=== PATIENT | female | born 1945 | race Caucasian/White ===

== ENCOUNTER 2018-02-19 14:50 | Outpatient (CLI) | payer MEDICARE ==
--- NOTE | 2018-02-19 16:00 | RAD ---
TWO VIEW CHEST: Indications: Cough. Comparison: 01-02-18 FINDINGS: The lungs appear clear. No infiltrate identified. Heart and mediastinum unremarkable and stable in ap pearance. IMPRESSION: No evidence of acute process or interval change. POS: [facility]
== END 2018-02-19 14:51 | disposition home or self-care (01) ==
LOC: RAD 14:50
PROVIDERS: ATTEND Internal Medicine Critical Care Medicine
DX: R06.00 Dyspnea, unspecified (principal)
CPT/HCPCS: 71046

== ENCOUNTER 2018-09-25 11:05 | Emergency (ER) | payer MEDICARE ==
[2018-09-25] MEDS ORDERED: Lidocaine 1% 20 ML MDV ONE (11:53)
--- NOTE | 2018-09-25 12:18 | RAD ---
LEFT KNEE 4 VIEW: Date: 09/25/18 COMPARISON: None. HISTORY: Pain, fall 1 month ago. FINDINGS: There is moderate medial compartment narrowing with associated osteophyte formation of the medial fem oral condyle and medial tibial plateau. There is mild lateral compartment narrowing. There is mild pa tellofemoral joint space narrowing. No significant knee joint effusion. No displaced fracture or evid ence of dislocation. IMPRESSION: Degenerative joint disease, most significantly involving the medial compartment. POS: [facility]
== END 2018-09-25 12:19 | disposition home or self-care (01) ==
LOC: SCSER 11:05
DX: M25.462 Effusion, left knee (principal); I10 Essential (primary) hypertension; J45.909 Unspecified asthma, uncomplicated; F32.9 Major depressive disorder, single episode, unspecified; Z79.899 Other long term (current) drug therapy; Z79.01 Long term (current) use of anticoagulants
CPT/HCPCS: 20610; J2001

== ENCOUNTER 2018-12-18 14:45 | Emergency (ER) | payer MEDICARE ==
[2018-12-18] MEDS ORDERED: Water For Inject, Bacteriostat 30 ML ONE (15:06)
[2018-12-18] MEDS ORDERED: diphenhydrAMINE 50 MG/ML VIAL ONE (15:06)
[2018-12-18] MEDS ORDERED: Metoclopramide HCl 10 MG/2 ML VIAL ONE (15:06)
[2018-12-18] MEDS ORDERED: methylPREDNISolone Sod Succ/PF 125 MG/2 ML VIAL ONE (15:06)
== END 2018-12-18 17:01 | disposition home or self-care (01) ==
LOC: SCSER 14:45
DX: G43.909 Migraine, unspecified, not intractable, without status migrainosus (principal); I10 Essential (primary) hypertension; J45.909 Unspecified asthma, uncomplicated; F32.9 Major depressive disorder, single episode, unspecified; Z79.899 Other long term (current) drug therapy; Z79.82 Long term (current) use of aspirin
CPT/HCPCS: 96365; 96375; J1200; J2765; J2930

== ENCOUNTER 2019-01-28 06:50 | Inpatient (IN) | payer MEDICARE ==
[2019-01-23 12:57] VITALS: BMI 28.3
[2019-01-28] MEDS ORDERED: Tranexamic Acid 1,000 MG/10 ML VIAL ONE ×2 (08:31→12:14)
[2019-01-28] MEDS ORDERED: Sodium Chloride 0.9% 100 ML ONE (08:31)
[2019-01-28] MEDS ORDERED: Scopolamine 1.5 mg/72 hour Patch ONE (08:37)
[2019-01-28] MEDS ORDERED: Fentanyl 100 MCG/2 ML VIAL ONE ×4 (08:46→12:49)
[2019-01-28] MEDS ORDERED: Midazolam HCl 2 mg/2 ml Vial ONE (08:46)
[2019-01-28] MEDS ORDERED: Lidocaine 1% (PF) 30 ML VIAL ONE (08:54)
[2019-01-28] MEDS ORDERED: Bupivacaine/Epinephrine 0.25% 30 ML VIAL ONE (09:23)
[2019-01-28] MEDS ORDERED: Clindamycin/D5W 600 mg/50 ml Premix Bag ONE (09:30)
[2019-01-28] MEDS ORDERED: Promethazine HCl 25 MG/ML VIAL IM PRN ×2 (09:32→13:05)
[2019-01-28] MEDS ORDERED: Ketorolac Tromethamine 30 MG/ML VIAL IVP PRN (09:32)
[2019-01-28] MEDS ORDERED: Zolpidem Tartrate 5 MG TAB PO PRN ×2 (09:32→13:05)
[2019-01-28] MEDS ORDERED: Ropivacaine HCl/PF 250 ML in Premix Bag 1 BAG NERVE BLCK SCH (09:32)
[2019-01-28] MEDS ORDERED: Ondansetron PF 4 MG/2 ML Vial IVP PRN ×2 (09:32→13:05)
[2019-01-28] MEDS ORDERED: HYDROcodone/Acetaminophen 10/325 mg Tablet PO PRN ×3 (09:32→13:05)
[2019-01-28] MEDS ORDERED: Fentanyl 100 MCG/2 ML VIAL SLOW IVP PRN ×3 (09:33→13:05)
[2019-01-28] MEDS ORDERED: Gentamicin Sulfate 100 MG in Premix Bag 1 BAG IVPB SCH (10:00)
[2019-01-28] MEDS ORDERED: Vancomycin HCl 1 GM in Premix Bag 1 BAG IVPB SCH ×2 (10:00→20:00)
[2019-01-28] MEDS ORDERED: Tranexamic Acid 1,000 MG in Sodium Chloride 0.9% 100 ML IVPB SCH (12:00)
--- NOTE | 2019-01-28 12:11 | RAD ---
XR Knee Lt 2 View: 01/28/2019 11:55 AM CLINICAL INDICATION: Postop left knee COMPARISON: None. FINDINGS: Bones: Intact Joints: There is a left total knee prosthesis that projects in the expected position. There are scatt ered intra-articular and periarticular soft tissue gas consistent with the patient's recent postoperative state. Soft Tissue: Above. IMPRESSION: Postoperative left knee without radiographic evidence of complication..
--- NOTE | 2019-01-28 12:34 | OP ---
DATE OF PROCEDURE: 01/28/2019 PREOPERATIVE DIAGNOSIS: Left knee osteoarthritis. POSTOPERATIVE DIAGNOSIS: Left knee osteoarthritis. PROCEDURE PERFORMED: Left total knee arthroplasty. STUDENT: Buddy Peng. ANESTHESIOLOGIST: 1. Dr. Forte. 2. Dr. Hood. ANESTHESIA: The patient received an LMA with adductor canal single shot sciatic as well as 30 mL of Marcaine intra-articularly. ESTIMATED BLOOD LOSS: Less than 100 mL. TOURNIQUET TIME: 63 minutes at 300 mmHg. ANTIBIOTICS: Vancomycin 1 g, Gent 100 mg x1 dose. The patient received TXA 1 g. IMPLANTS: A size 3 Triathlon CR femur, a size 3 X3 x 9 mm CS insert, and a size 3 tibial base plate, Triathlon base implant, asymmetric 29 poly. COMPLICATIONS: None. HISTORY OF PRESENT ILLNESS: Joel is a 73-year-old female, well known to my service. She has a history of multiple medical problems. The patient had been cleared preoperatively and cleared up her C difficile. She had left knee osteoarthritis. The patient was in severe pain, desired left total knee arthroplasty. I discussed the risks and benefits of surgery to include pain, scar, bleeding, infection, damage to vital structures, decreased range of motion and strength, nonunion, fracture above and below, need for further surgeries, loss of life or limb. The patient understood the risks and benefits and elected to proceed. DESCRIPTION OF PROCEDURE: Time-out was performed designating the patient's left lower extremity as an operative site based on site, consents, and marking. After a time-out procedure, the patient's left lower extremity was prepped and draped in a sterile fashion. Tourniquet up and left up for 63 minutes. Anterior midline incision was made with medial patellar approach, exposed the knee. We did a medial soft tissue release, took down the fat pad, everted the patella, mapped out the femur cut, 0 degrees of varus and valgus, 8, 9, 4 degrees of slope. We then placed our external rotation guide, mapped out to a size 3, placed our cutting block, cut our anterior, posterior, and chamfer cuts, removed osteophytes and block and then moved to the tibia, placing our pickle fork position, released our PCL, exposed our tibia. We cut our tibia and once 6m 4 degrees of slope, we chose a size 3 tray, which we placed after we done our medial soft tissue release. We did our medial and lateral gutter removal as well as the meniscectomies without protecting the lamina lopper. We did our osteophyte removal. We then placed a size 3 tray, pinned in position in line with anterior 1/3 of the tibial tubercle down the tibial spine, pinned into position, placed our 9-mm poly into position. We then placed the femur in position. The patient had good flexion and extension, good stability, varus and valgus to overall good control, like the final implants. We everted the patella, cut down from about a 22 down to about 13, tracked and felt the overall alignment and position of the patella. We removed the components and cut our keel, drilled holes for the lugs, then removed the components. We cemented the tibia, removed the excess and placed our poly, placed our femur, removed excess cement, placed in extension, everted, cemented our patella, removed excess cement, washed out the joint, made sure we saw no other loose bodies, controlled any bleeding. We then closed the arthrotomy with 2 / 0 / 2-0 Quill and glue. The patient will be weightbearing as tolerated. She will follow [facility] protocol. The patient will receive one more dose of vancomycin and Ancef. She will receive her GI regimen to help decrease risk of C difficile. The patient will be followed by [facility]. The patient's outlook is guarded. She had a flexion contracture, but no obvious discernible defect posteriorly that could disrupt her motion. Job ID: [id number] [facility]
[2019-01-28] MEDS ORDERED: Acetaminophen 325 MG TAB PO PRN (13:05)
[2019-01-28] MEDS ORDERED: diphenhydrAMINE 25 MG CAP PO PRN (13:05)
[2019-01-28] MEDS ORDERED: Ropivacaine 0.2% HCl/PF (40 MG/20 ML VIAL) ONE (14:16)
[2019-01-28] MEDS ORDERED: Ropivacaine 0.5% HCl/PF (150 MG/30 ML VIAL) ONE (14:16)
[2019-01-28] MEDS ORDERED: diphenhydrAMINE 50 MG/ML VIAL ONE (14:19)
[2019-01-28] MEDS ORDERED: Ondansetron PF 4 MG/2 ML Vial ONE (14:19)
[2019-01-28] MEDS ORDERED: Dexamethasone 20 MG/5 ML VIAL ONE (14:19)
[2019-01-28] MEDS ORDERED: PROPOFOL 200 MG/20 ML VIAL ONE (14:19)
[2019-01-28] MEDS ORDERED: ePHEDrine 50 MG/ML VIAL ONE (14:19)
[2019-01-28] MEDS: HYDROcodone/Acetaminophen 10/325 mg Tablet PO PRN ×2 (14:21→21:30)
[2019-01-28] MEDS: Sodium Chloride 0.9% 1,000 ML IV SCH ×2 (14:22→23:20)
[2019-01-28] MEDS ORDERED: Fioricet 325/50/40 mg Tablet PO PRN (15:27)
[2019-01-28] MEDS ORDERED: Hyoscyamine Sulfate SL 0.125 mg Tablet SL PRN (15:41)
[2019-01-28] MEDS ORDERED: Estrogens, Conjugated 30 GM TUBE VAG SCH (15:45)
--- NOTE | 2019-01-28 16:37 | HP ---
CHIEF COMPLAINT: Left knee pain. HISTORY OF PRESENT ILLNESS: Ms. Maldonado is a 73-year-old female, who presents with left knee pain and history of previous injections. The patient has difficulty with pain, recent bladder lift procedure secondary to the hospital admission. The patient is currently resting comfortably in bed. PAST MEDICAL HISTORY: Hypertension, asthma, , MARLA, hypothyroidism, reflux, hypertension, peripheral neuropathy, restless legs, irritable bowel, vitamin B12, chronic pain management, recurrent sinusitis, stomach ulceration, history of chronic kidney disease, and coronary artery disease. PAST SURGICAL HISTORY: Bilateral salpingo-oophorectomy, sinus procedures x3, bilateral carpal tunnel release, breast biopsy, right rotator cuff repair, tonsilloadenoidectomy, cataracts, surgery on both feet, implants in left and right eye, bladder lift in 1999 and revision today in 2019 for prolapsed bladder, left total hip arthroplasty, right reverse shoulder arthroplasty, cubital tunnel and trigger finger release in 2013 . MEDICATIONS: Please see admission list. ALLERGIES: HIBICLENS, ADHESIVE TAPE, AMLODIPINE, SULFA, KEFLEX, MACRODANTIN, STATIN, LYRICA, CELEBREX, TRAMADOL, NORVASC, AND PROZAC. SOCIAL HISTORY: The patient is with children. Caffeine use. No alcohol or smoking. PHYSICAL EXAMINATION: GENERAL: Alert and oriented female, in no acute distress, resting comfortably in bed. EXTREMITIES: The patient's left lower extremity shows effusion, 5 to 110 degrees, pain with flexion, extension, varus position, medial joint line tenderness. Neurovascularly intact distally. IMPRESSION: Left knee osteoarthritis with multiple medical problems. ASSESSMENT AND PLAN: The patient received her cardiac clearance and clearance from her primary treating doctors. She is at moderate risk. I discussed with the patient risks and benefits of surgery. She will receive vancomycin and clindamycin preoperatively. She has received clindamycin and Cipro. I am trying to decrease the risk of recurrence of C diff postop for recurrent infections and bladder infections. The patient will be admitted postoperatively. She will need to go to half-way for continuing care. The patient will be weightbearing as tolerated. She will receive [place]'s protocol postop. I discussed the risks and benefits of surgery, pain, scar, bleeding, infection, damage to vital structures, decreased range of motion and strength, nonunion, malunion, fracture above or below the stem, and need for further surgeries, loss of life or limb. The patient understands the risks and benefits, elected to proceed. Job ID: [id number] [facility]
[2019-01-28] MEDS: fentaNYL 50 mcg/hour Patch TD SCH (18:28)
[2019-01-28] MEDS: Ferrous Gluconate 324 MG TAB PO SCH (18:28)
--- NOTE | 2019-01-28 19:11 | PRG ---
DATE OF SERVICE: 01/28/2019 SUBJECTIVE: Ms. Maldonado is a pleasant 73-year-old female with past medical history significant for hypertension; obstructive sleep apnea, compliant with CPAP; peripheral neuropathy; chronic anemia; asthma; anxiety and depression; UTI, diagnosed on January 23, 2019, status post treatment; who presented today for elective left total knee arthroplasty with Dr. Titus. The patient is seen postoperatively up on the floor. Hospitalist Service has been consulted for medical management of this patient. The patient has absolutely no complaints at this time. She is resting comfortably. She has no postoperative pain. She has had no nausea or vomiting. She has tolerated both lunch and dinner. She has already been up out of bed since her procedure. She is concerned that her home medications do get restarted, otherwise she has no concerns or complaints at this time. OBJECTIVE: VITAL SIGNS: Blood pressure 148/67, pulse is 66, respirations 16, and O2 saturation is 98%. GENERAL: The patient is a female, resting comfortably in bed, in no acute distress. HEENT: Head, atraumatic and normocephalic. Mucous membranes are moist. NECK: Supple. No lymphadenopathy. Trachea is midline. No JVD. CV: S1 and S2, regular rate and rhythm. No appreciable murmurs, rubs, or gallops. LUNGS: Regular respiratory rate and pattern. Clear to auscultation bilaterally. I can appreciate no wheezes or crackles. ABDOMEN: Soft, positive bowel sounds. Nontender. No masses. SKIN: Warm and dry. NEUROLOGIC: Cranial nerves 2 through 12 are grossly intact. The patient is nonfocal. EXTREMITIES: Her left knee is currently wrapped and dressed. She has no lower extremity pitting edema bilaterally. LABORATORY DATA: From Jan 23 2019; white blood cell count 9.2, hemoglobin 9.9, hematocrit 30.3, platelet count 303. PT 14.4, INR 1.1. Sodium 142, potassium 3.7, chloride 113, carbon dioxide 22, anion gap 11, BUN 33, GFR 52, creatinine 1.08. ASSESSMENT: 1. Status post left total knee arthroplasty with Dr. Titus today. 2. Hypertension. 3. Obstructive sleep apnea, on CPAP. 4. Peripheral neuropathy. 5. Chronic anemia. 6. Asthma. 7. Anxiety and depression. 8. Urinary tract infection, diagnosed on January 23, 2019, status post antibiotic treatment. 9. hypothyroidism PLAN: We will continue the patient's home medications, including her antihypertensive regimen along with her iron and vitamin C. We will continue her probiotic. Continue her gabapentin. The patient's postoperative pain is well controlled at this time. We will continue to follow Dr. Titus's postoperative recommendations, and we will continue to follow this patient through her recovery. The care of this patient has been discussed with Dr. Vanegas, who agrees with the above. Job ID: [id number] [facility]
[2019-01-28] MEDS: Mometasone/Formoterol 120 PUFF INHALER INH SCH (19:14)
[2019-01-28] MEDS: rOPINIRole HCl 0.5 MG TAB PO SCH (20:17)
[2019-01-28] MEDS: Magnesium Oxide 400 MG TAB PO SCH (20:18)
[2019-01-28] MEDS: Pramipexole Di-HCl 1 MG TAB PO SCH (20:18)
[2019-01-28] MEDS: Gabapentin 300 MG CAP PO SCH (20:18)
[2019-01-28] MEDS: Topiramate 100 MG TAB PO SCH (20:18)
[2019-01-28] MEDS: Aspirin 81 mg Enteric Coated Tablet PO SCH (20:18)
[2019-01-28] MEDS: Senokot S 8.6-50 MG TAB PO SCH (20:19)
[2019-01-28] MEDS: buPROPion 75 MG TAB PO SCH (20:19)
[2019-01-28] MEDS ORDERED: FLUTICASONE EA NARE SCH (21:00)
[2019-01-28] MEDS ORDERED: Ferrous Gluconate 324 MG TAB PO SCH (21:00)
[2019-01-28] MEDS ORDERED: buPROPion 75 MG TAB PO SCH (21:00)
[2019-01-28] MEDS ORDERED: Gabapentin 300 MG CAP PO SCH (21:00)
[2019-01-28] MEDS ORDERED: AZELASTINE EA NARE SCH (21:00)
[2019-01-28] MEDS ORDERED: Docusate 100 MG CAP PO SCH (21:00)
[2019-01-29] MEDS: Ketorolac Tromethamine 30 MG/ML VIAL IVP PRN (00:43)
[2019-01-29] MEDS: tiZANidine HCl 4 MG TAB PO PRN (00:44)
[2019-01-29 05:18] LABS: Hemoglobin 8.5 g/dL (12.0-16.0); Mean Corpuscular HGB CONC 32.1 g/dL (32.0-36.0); Mean Corpuscular Hemoglobin 33.8 pg (27.0-31.0); Mean Platelet Volume 7.5 fL (7.4-10.4); Platelet Count 208 thou/uL (130-400); RBC Distribution Width 13.4 % (11.5-14.5); White Blood Cell (WBC) Count 9.3 thou/uL (4.8-10.8)
[2019-01-29] MEDS: Levothyroxine Sodium 75 MCG TAB PO SCH (05:24)
[2019-01-29 07:23] LABS: Anion Gap 12 mmol/L (10-20); BUN (Urea Nitrogen) 30 mg/dL (9.8-20.1); Calc. Creatinine Clearance 38 mL/min (70-130); Calcium 8.2 mg/dL (7.8-10.44); Carbon Dioxide 21 mmol/L (23-31); Chloride 109 mmol/L (98-107); Estimated GFR-MDRD 35; Glucose 200 mg/dL (83-110); Sodium 138 mmol/L (136-145)
[2019-01-29] MEDS: Mometasone/Formoterol 120 PUFF INHALER INH SCH ×2 (07:35→18:18)
[2019-01-29] MEDS: buPROPion 75 MG TAB PO SCH ×3 (08:24→21:04)
[2019-01-29] MEDS: Propranolol HCl LA 80 MG CAP PO SCH (08:24)
[2019-01-29] MEDS: Lactinex Tablet PO SCH (08:24)
[2019-01-29] MEDS: Thyroid 30 MG TAB PO SCH (08:24)
[2019-01-29] MEDS: Zinc Sulfate 220 MG CAP PO SCH (08:24)
[2019-01-29] MEDS: rOPINIRole HCl 0.5 MG TAB PO SCH ×2 (08:25→21:04)
[2019-01-29] MEDS: Ascorbic Acid 500 mg Chewable Tablet PO SCH (08:26)
[2019-01-29] MEDS: Pramipexole Di-HCl 1 MG TAB PO SCH ×2 (08:26→21:05)
[2019-01-29] MEDS: Escitalopram Oxalate 20 mg Tablet PO SCH (08:26)
[2019-01-29] MEDS: Ferrous Gluconate 324 MG TAB PO SCH ×2 (08:26→16:29)
[2019-01-29] MEDS: Gabapentin 300 MG CAP PO SCH ×2 (08:26→21:06)
[2019-01-29] MEDS: Senokot S 8.6-50 MG TAB PO SCH ×2 (08:26→21:05)
[2019-01-29] MEDS: Aspirin 81 mg Enteric Coated Tablet PO SCH ×2 (08:26→21:06)
[2019-01-29] MEDS: Allopurinol 300 MG TAB PO SCH (08:26)
[2019-01-29] MEDS: Multivitamin W/ Minerals 1 TAB PO SCH (08:26)
[2019-01-29] MEDS: Loratadine 10 MG TAB PO SCH (08:27)
[2019-01-29] MEDS: Losartan 25 MG TAB PO SCH (08:33)
[2019-01-29] MEDS: HYDROcodone/Acetaminophen 10/325 mg Tablet PO PRN ×3 (08:36→16:29)
[2019-01-29] MEDS ORDERED: Multivit, Therapeutic 1 TAB PO SCH (09:00)
[2019-01-29] MEDS ORDERED: METHYLCELLULOSE PO SCH (09:00)
[2019-01-29] MEDS ORDERED: [UNRECOGNIZED DRUG - OTHER] PO SCH (09:00)
[2019-01-29] MEDS ORDERED: THYROID PO SCH (09:00)
[2019-01-29] MEDS: Sodium Chloride 0.9% 1,000 ML IV SCH ×2 (09:33→21:04)
--- NOTE | 2019-01-29 11:47 | PDOC.PN ---
- Subjective Encounter Start Date: 01/29/19 Encounter Start Time: 08:20 -: old records requested/rev Patient seen and examined. No new complaints. No overnight events - Objective MAR Reviewed: Yes Vital Signs & Weight: Vital Signs (12 hours) Temp Pulse Resp BP BP Pulse Ox 01/29/19 08:28 98.8 F 59 L 18 119/68 99 01/29/19 07:35 66 20 96 01/29/19 03:57 98.4 F 51 L 16 101/61 95 01/29/19 00:25 97.9 F 66 16 150/58 H 94 L Weight Admit Weight 160 lb Weight 160 lb I&O: 01/28/19 01/29/19 01/30/19 06:59 06:59 06:59 Intake Total 2120 Output Total 1975 Balance 145 Result Diagrams: 01/29/19 04:55 01/29/19 06:54 Phys Exam - Physical Examination Constitutional: NAD HEENT: PERRLA, moist MMs, sclera anicteric Neck: no JVD, supple Respiratory: no wheezing, no rales, no rhonchi Cardiovascular: RRR, no significant murmur, no rub Gastrointestinal: soft, non-tender, no distention, positive bowel sounds Musculoskeletal: no edema, pulses present left knee with dressing Neurological: non-focal, normal sensation Lymphatic: no nodes Psychiatric: normal affect, A&O x 3 Skin: no rash, normal turgor Dx/Plan (1) Status post total left knee replacement Code(s): Z96.652 - PRESENCE OF LEFT ARTIFICIAL KNEE JOINT Status: Acute (2) Anxiety Code(s): F41.9 - ANXIETY DISORDER, UNSPECIFIED Status: Chronic Comment: Controlled (3) Asthma Code(s): J45.909 - UNSPECIFIED ASTHMA, UNCOMPLICATED Status: Chronic Comment : Stable/asymptomatic currently. (4) B12 deficiency Code(s): E53.8 - DEFICIENCY OF OTHER SPECIFIED B GROUP VITAMINS Status: Chronic (5) CKD (chronic kidney disease) stage 3, GFR 30-59 ml/min Status: Chronic (6) Dyslipidemia Code(s): E78.5 - HYPERLIPIDEMIA, UNSPECIFIED Status: Chronic (7) GERD (gastroesophageal reflux disease) Code(s): K21.9 - GASTRO-ESOPHAGEAL REFLUX DISEASE WITHOUT ESOPHAGITIS Status: Chronic (8) Gout Code(s): M10.9 - GOUT, UNSPECIFIED Status: Chronic (9) HTN (hypertension) Code(s): I10 - ESSENTIAL (PRIMARY) HYPERTENSION Status: Chronic (10) History of total left hip arthroplasty Code(s): Z96.642 - PRESENCE OF LEFT ARTIFICIAL HIP JOINT Status: Chronic Comment: POD #2, doing well overall. Plans to proceed with outpt rehab and anticipates transition on 03/10 (11) MARLA on CPAP Code(s): G47.33 - OBSTRUCTIVE SLEEP APNEA (ADULT) (PEDIATRIC) Status: Chronic Comment: CPAP qhs (12) Osteoarthritis Code(s): M19.90 - UNSPECIFIED OSTEOARTHRITIS, UNSPECIFIED SITE Status: Chronic (13) RLS (restless legs syndrome) Status: Chronic (14) Shoulder joint replacement status Code(s): Z96.619 - PRESENCE OF UNSPECIFIED ARTIFICIAL SHOULDER JOINT Status: Chronic - Plan cont current plan of care, PT/OT * medication reviewed as below * symptomatic treatment * code status- full code * home meds * continue aspirin for dvt prophylaxis. Review of Systems - Review of Systems ENT: negative: Ear Pain, Ear Discharge, Nose Pain, Nose Discharge, Nose Congestion, Mouth Pain, Mouth Swelling, Throat Pain, Throat Swelling, Other Respiratory: negative: Cough, Dry, Shortness of Breath, Hemoptysis, SOB with Excertion, Pleuritic Pain, Sputum, Wheezing Cardiovascular: negative: chest pain, palpitations, orthopnea, paroxysmal nocturnal dyspnea, edema, light headedness, other Gastrointestinal: negative: Nausea, Vomiting, Abdominal Pain, Diarrhea, Constipation, Melena, Hematochezia, Other Genitourinary: negative: Dysuria, Frequency, Incontinence, Hematuria, Retention , Other Musculoskeletal: negative: Neck Pain, Shoulder Pain, Arm Pain, Back Pain, Hand Pain, Leg Pain, Foot Pain, Other - Medications/Allergies Allergies/Adverse Reactions: Allergies Allergy/AdvReac Type Severity Reaction Status Date / Time adhesive Allergy Severe Verified 01/23/19 12:58 amlodipine besylate Allergy Severe Rash Verified 01/23/19 12:58 [From Norvasc] celecoxib [From Celebrex] Allergy Severe Rash Verified 01/23/19 12:58 cephalexin monohydrate Allergy Severe Hives Verified 01/23/19 12:58 [From Keflex] peanut Allergy Severe Rash Verified 01/23/19 12:58 soy Allergy Severe Swollen Verified 01/23/19 12:58 Lips Sulfa (Sulfonamide Allergy Severe Severe Verified 01/23/19 12:58 Antibiotics) Hives tramadol Allergy Severe Severe Verified 01/23/19 12:58 Hives chlorhexidine Allergy Intermediate itching Verified 01/23/19 12:58 [From Hibiclens] nitrofurantoin AdvReac Severe Verified 01/23/19 12:58 macrocrystalline [From Macrodantin] pregabalin [From Lyrica] AdvReac Severe Verified 01/23/19 12:59 Ygkkenq-Tia-Hie Reductase AdvReac Severe Verified 01/23/19 12:59 Inhibitor bandaids Allergy Severe Rash Uncoded 01/23/19 12:59 Medications: Current Medications Acetaminophen (Tylenol) 650 mg PO Q4H PRN PRN Reason: Headache/Fever or Pain Acetaminophen/Butalbital/Caffeine (Fioricet) 1 tab PO Q6H PRN PRN Reason: Headache Stop: 02/02/19 15:28 Hydrocodone Bitart/Acetaminophen ([place] 10/325) 1 tab PO Q4H PRN PRN Reason: Pain (1-3) Hydrocodone Bitart/Acetaminophen ([place] 10/325) 2 tab PO Q4H PRN PRN Reason: PAIN (4-6) Last Admin: 01/29/19 08:36 Dose: 2 tab Acidophilus (Floranex) 1 tab PO DAILY [facility] Last Admin: 01/29/19 08:24 Dose: 1 tab Allopurinol (Zyloprim) 150 mg PO DAILY [facility] Last Admin: 01/29/19 08:26 Dose: 150 mg Ascorbic Acid (Vitamin C) 500 mg PO DAILY [facility] Last Admin: 01/29/19 08:26 Dose: 500 mg Aspirin (Ecotrin) 81 mg PO BID [facility] Last Admin: 01/29/19 08:26 Dose: 81 mg Bupropion HCl (Wellbutrin) 75 mg PO TID [facility] Last Admin: 01/29/19 08:24 Dose: 75 mg Cholecalciferol (Vitamin D3) 5,000 units PO DAILY [facility] Last Admin: 01/29/19 08:25 Dose: 5,000 units Cyanocobalamin (Vitamin B-12) 5,000 mcg PO Q2DAYS@0900 [facility] Diphenhydramine HCl (Benadryl) 25 mg PO Q6H PRN PRN Reason: Itching Last Admin: 01/28/19 18:28 Dose: 25 mg Escitalopram Oxalate (Lexapro) 20 mg PO DAILY [facility] Last Admin: 01/29/19 08:26 Dose: 20 mg Estrogens Conjugated (Premarin Cream) 1 gm VAG MoWeFr [facility] Fentanyl (Sublimaze) 50 mcg SLOW IVP Q1H PRN PRN Reason: breakthrough pain Fentanyl (Duragesic) 50 mcg TD Q2D [facility] Last Admin: 01/28/19 18:28 Dose: 50 mcg Ferrous Gluconate (Fergon) 324 mg PO BID-WM [facility] Last Admin: 01/29/19 08:26 Dose: 324 mg Gabapentin (Neurontin) 300 mg PO QAM [facility] Last Admin: 01/29/19 08:26 Dose: 300 mg Gabapentin (Neurontin) 600 mg PO HS [facility] Last Admin: 01/28/19 20:18 Dose: 600 mg Hyoscyamine Sulfate (Levsin Sl) 0.125 mg SL Q4H PRN PRN Reason: GI Upset Ropivacaine 250 ml/ Device 250 mls @ 10 mls/hr NERVE BLCK INF [facility] Sodium Chloride (Normal Saline 0.9%) 1,000 mls @ 100 mls/hr IV .Q10H [facility] Last Admin: 01/29/19 09:33 Dose: 1,000 mls Iron/Minerals/Multivitamins (Theragran M) 1 tab PO DAILY [facility] Last Admin: 01/29/19 08:26 Dose: 1 tab Ketorolac Tromethamine (Toradol) 15 mg IVP Q8H PRN PRN Reason: Pain Stop: 02/02/19 13:06 Last Admin: 01/29/19 00:43 Dose: 15 mg Levothyroxine Sodium (Synthroid) 75 mcg PO 0600 [facility] Last Admin: 01/29/19 05:24 Dose: 75 mcg Loratadine (Claritin) 10 mg PO DAILY [facility] Last Admin: 01/29/19 08:27 Dose: 10 mg Losartan Potassium (Cozaar) 50 mg PO DAILY [facility] Last Admin: 01/29/19 08:33 Dose: 50 mg Magnesium Oxide (Magnesium Oxide) 400 mg PO HS [facility] Last Admin: 01/28/19 20:18 Dose: 400 mg Mirabegron (Myrbetriq Er) 25 mg PO DAILY [facility] Last Admin: 01/29/19 08:24 Dose: 25 mg Mometasone Furoate/Formoterol Fumar (Dulera 200 Mcg/5 Mcg Inhaler) 2 puff INH BID-RT [facility] Last Admin: 01/29/19 07:35 Dose: 2 puff Ondansetron HCl (Zofran) 4 mg IVP Q6H PRN PRN Reason: Nausea/Vomiting Pantoprazole Sodium (Protonix) 40 mg PO DAILY [facility] Last Admin: 01/29/19 08:26 Dose: 40 mg Pramipexole Dihydrochloride (Mirapex) 1 mg PO BID [facility] Last Admin: 01/29/19 08:26 Dose: 1 mg Promethazine HCl (Phenergan) 12.5 mg IM Q4H PRN PRN Reason: Nausea Propranolol HCl (Inderal La) 160 mg PO DAILY [facility] Last Admin: 01/29/19 08:24 Dose: 160 mg Ropinirole HCl (Requip) 0.5 mg PO BID [facility] Last Admin: 01/29/19 08:25 Dose: 0.5 mg Senna/Docusate Sodium (Senokot S) 2 tab PO BID [facility] Last Admin: 01/29/19 08:26 Dose: 2 tab Sodium Chloride (Flush - Normal Saline) 10 ml IVF PRN PRN PRN Reason: Saline Flush Thyroid (Jackson Thyroid) 30 mg PO QAM [facility] Last Admin: 01/29/19 08:24 Dose: 30 mg Tizanidine HCl (Zanaflex) 4 mg PO HS PRN PRN Reason: Muscle Spasm Last Admin: 01/29/19 00:44 Dose: 4 mg Topiramate (Topamax) 150 mg PO HS [facility] Last Admin: 01/28/19 20:18 Dose: 150 mg Zinc Sulfate (Zinc Sulfate) 50 mg PO DAILY [facility] Last Admin: 01/29/19 08:24 Dose: 50 mg Zolpidem Tartrate (Ambien) 5 mg PO HSPRN PRN PRN Reason: Insomnia
[2019-01-29] MEDS ORDERED: Estrogens, Conjugated 30 GM TUBE VAG SCH (21:00)
[2019-01-29] MEDS: Magnesium Oxide 400 MG TAB PO SCH (21:05)
[2019-01-29] MEDS: Topiramate 100 MG TAB PO SCH (21:06)
[2019-01-30] MEDS: tiZANidine HCl 4 MG TAB PO PRN (00:10)
[2019-01-30] MEDS: Ketorolac Tromethamine 30 MG/ML VIAL IVP PRN (00:10)
[2019-01-30] MEDS: Sodium Chloride 0.9% 1,000 ML IV SCH (04:29)
[2019-01-30 05:38] LABS: Hemoglobin 7.9 g/dL (12.0-16.0); Mean Corpuscular Hemoglobin 33.6 pg (27.0-31.0); Mean Platelet Volume 7.8 fL (7.4-10.4); Platelet Count 209 thou/uL (130-400); RBC Distribution Width 13.2 % (11.5-14.5); Red Blood Cell (RBC) Count 2.36 mill/uL (4.20-5.40); White Blood Cell (WBC) Count 8.2 thou/uL (4.8-10.8)
[2019-01-30] MEDS: Levothyroxine Sodium 75 MCG TAB PO SCH (05:52)
[2019-01-30] MEDS: HYDROcodone/Acetaminophen 10/325 mg Tablet PO PRN ×2 (05:52→12:29)
[2019-01-30] MEDS: Mometasone/Formoterol 120 PUFF INHALER INH SCH (07:03)
[2019-01-30 08:32] VITALS: TEMP 97.8
[2019-01-30] MEDS: rOPINIRole HCl 0.5 MG TAB PO SCH (08:36)
[2019-01-30] MEDS: Propranolol HCl LA 80 MG CAP PO SCH (08:36)
[2019-01-30] MEDS: Thyroid 30 MG TAB PO SCH (08:38)
[2019-01-30] MEDS: Zinc Sulfate 220 MG CAP PO SCH (08:38)
[2019-01-30] MEDS: Lactinex Tablet PO SCH (08:38)
[2019-01-30] MEDS: Ascorbic Acid 500 mg Chewable Tablet PO SCH (08:39)
[2019-01-30] MEDS: Ferrous Gluconate 324 MG TAB PO SCH (08:39)
[2019-01-30] MEDS: Losartan 25 MG TAB PO SCH (08:39)
[2019-01-30] MEDS: Pramipexole Di-HCl 1 MG TAB PO SCH (08:39)
[2019-01-30] MEDS: Senokot S 8.6-50 MG TAB PO SCH (08:39)
[2019-01-30] MEDS: Loratadine 10 MG TAB PO SCH (08:40)
[2019-01-30] MEDS: Multivitamin W/ Minerals 1 TAB PO SCH (08:40)
[2019-01-30] MEDS: Aspirin 81 mg Enteric Coated Tablet PO SCH (08:40)
[2019-01-30] MEDS: buPROPion 75 MG TAB PO SCH (08:40)
[2019-01-30] MEDS: Allopurinol 300 MG TAB PO SCH (08:40)
[2019-01-30] MEDS: Escitalopram Oxalate 20 mg Tablet PO SCH (08:40)
[2019-01-30] MEDS: Gabapentin 300 MG CAP PO SCH (08:40)
[2019-01-30] MEDS ORDERED: Cyanocobalamin (Vitamin B-12) 1,000 MCG TAB PO SCH (09:00)
[2019-01-30] MEDS ORDERED: Folic Acid 1 MG TAB PO SCH (09:00)
[2019-01-30 09:01] LABS: Anion Gap 10 mmol/L (10-20); BUN (Urea Nitrogen) 34 mg/dL (9.8-20.1); Calc. Creatinine Clearance 39 mL/min (70-130); Carbon Dioxide 21 mmol/L (23-31); Chloride 110 mmol/L (98-107); Estimated GFR-MDRD 35; Glucose 272 mg/dL (83-110); Potassium 3.9 mmol/L (3.5-5.1); Sodium 137 mmol/L (136-145)
[2019-01-30 09:56] LABS: Hemoglobin A1c 5.6 % (4.0-6.0)
--- NOTE | 2019-01-30 10:11 | PDOC.PN ---
- Subjective Encounter Start Date: 01/30/19 Encounter Start Time: 08:30 Patient seen and examined. No new complaints. No overnight events - Objective MAR Reviewed: Yes Vital Signs & Weight: Vital Signs (12 hours) Temp Pulse Resp BP Pulse Ox 01/30/19 08:43 62 122/65 01/30/19 07:26 97.8 F 50 L 16 90/38 L 97 01/30/19 07:03 61 18 96 01/30/19 04:05 98.9 F 58 L 18 144/66 H 96 01/30/19 00:28 98.2 F 65 20 165/69 H 96 Weight Admit Weight 160 lb Weight 160 lb I&O: 01/29/19 01/30/19 01/31/19 06:59 06:59 06:59 Intake Total 2120 3520 Output Total 1975 Balance 145 3520 Result Diagrams: 01/30/19 05:24 01/30/19 08:26 Phys Exam - Physical Examination Constitutional: NAD HEENT: PERRLA, moist MMs, sclera anicteric Neck: no JVD, supple Respiratory: no wheezing, no rales, no rhonchi Cardiovascular: RRR, no significant murmur, no rub Gastrointestinal: soft, non-tender, no distention, positive bowel sounds Musculoskeletal: no edema, pulses present Neurological: non-focal, normal sensation Lymphatic: no nodes Psychiatric: normal affect, A&O x 3 Skin: no rash, normal turgor Dx/Plan (1) Status post total left knee replacement Code(s): Z96.652 - PRESENCE OF LEFT ARTIFICIAL KNEE JOINT Status: Acute (2) Anxiety Code(s): F41.9 - ANXIETY DISORDER, UNSPECIFIED Status: Chronic Comment: Controlled (3) Asthma Code(s): J45.909 - UNSPECIFIED ASTHMA, UNCOMPLICATED Status: Chronic Comment : Stable/asymptomatic currently. (4) B12 deficiency Code(s): E53.8 - DEFICIENCY OF OTHER SPECIFIED B GROUP VITAMINS Status: Chronic (5) CKD (chronic kidney disease) stage 3, GFR 30-59 ml/min Status: Chronic (6) Dyslipidemia Code(s): E78.5 - HYPERLIPIDEMIA, UNSPECIFIED Status: Chronic (7) GERD (gastroesophageal reflux disease) Code(s): K21.9 - GASTRO-ESOPHAGEAL REFLUX DISEASE WITHOUT ESOPHAGITIS Status: Chronic (8) Gout Code(s): M10.9 - GOUT, UNSPECIFIED Status: Chronic (9) HTN (hypertension) Code(s): I10 - ESSENTIAL (PRIMARY) HYPERTENSION Status: Chronic (10) History of total left hip arthroplasty Code(s): Z96.642 - PRESENCE OF LEFT ARTIFICIAL HIP JOINT Status: Chronic Comment: POD #2, doing well overall. Plans to proceed with outpt rehab and anticipates transition on 03/10 (11) MARLA on CPAP Code(s): G47.33 - OBSTRUCTIVE SLEEP APNEA (ADULT) (PEDIATRIC) Status: Chronic Comment: CPAP qhs (12) Osteoarthritis Code(s): M19.90 - UNSPECIFIED OSTEOARTHRITIS, UNSPECIFIED SITE Status: Chronic (13) RLS (restless legs syndrome) Status: Chronic (14) Shoulder joint replacement status Code(s): Z96.619 - PRESENCE OF UNSPECIFIED ARTIFICIAL SHOULDER JOINT Status: Chronic - Plan cont current plan of care * medication reviewed as below * symptomatic treatment * will need rehab placement * pain controlled * nerve block as per anesthesia. Review of Systems - Review of Systems ENT: negative: Ear Pain, Ear Discharge, Nose Pain, Nose Discharge, Nose Congestion, Mouth Pain, Mouth Swelling, Throat Pain, Throat Swelling, Other Respiratory: negative: Cough, Dry, Shortness of Breath, Hemoptysis, SOB with Excertion, Pleuritic Pain, Sputum, Wheezing Cardiovascular: negative: chest pain, palpitations, orthopnea, paroxysmal nocturnal dyspnea, edema, light headedness, other Gastrointestinal: negative: Nausea, Vomiting, Abdominal Pain, Diarrhea, Constipation, Melena, Hematochezia, Other Genitourinary: negative: Dysuria, Frequency, Incontinence, Hematuria, Retention , Other Musculoskeletal: negative: Neck Pain, Shoulder Pain, Arm Pain, Back Pain, Hand Pain, Leg Pain, Foot Pain, Other - Medications/Allergies Allergies/Adverse Reactions: Allergies Allergy/AdvReac Type Severity Reaction Status Date / Time adhesive Allergy Severe Verified 01/23/19 12:58 amlodipine besylate Allergy Severe Rash Verified 01/23/19 12:58 [From Norvasc] celecoxib [From Celebrex] Allergy Severe Rash Verified 01/23/19 12:58 cephalexin monohydrate Allergy Severe Hives Verified 01/23/19 12:58 [From Keflex] peanut Allergy Severe Rash Verified 01/23/19 12:58 soy Allergy Severe Swollen Verified 01/23/19 12:58 Lips Sulfa (Sulfonamide Allergy Severe Severe Verified 01/23/19 12:58 Antibiotics) Hives tramadol Allergy Severe Severe Verified 01/23/19 12:58 Hives chlorhexidine Allergy Intermediate itching Verified 01/23/19 12:58 [From Hibiclens] nitrofurantoin AdvReac Severe Verified 01/23/19 12:58 macrocrystalline [From Macrodantin] pregabalin [From Lyrica] AdvReac Severe Verified 01/23/19 12:59 Prmbypg-Lwr-Bpg Reductase AdvReac Severe Verified 01/23/19 12:59 Inhibitor bandaids Allergy Severe Rash Uncoded 01/23/19 12:59 Medications: Current Medications Acetaminophen (Tylenol) 650 mg PO Q4H PRN PRN Reason: Headache/Fever or Pain Acetaminophen/Butalbital/Caffeine (Fioricet) 1 tab PO Q6H PRN PRN Reason: Headache Stop: 02/02/19 15:28 Hydrocodone Bitart/Acetaminophen (Ione 10/325) 1 tab PO Q4H PRN PRN Reason: Pain (1-3) Hydrocodone Bitart/Acetaminophen (Ione 10/325) 2 tab PO Q4H PRN PRN Reason: PAIN (4-6) Last Admin: 01/30/19 05:52 Dose: 2 tab Acidophilus (Floranex) 1 tab PO DAILY [facility] Last Admin: 01/30/19 08:38 Dose: 1 tab Allopurinol (Zyloprim) 150 mg PO DAILY [facility] Last Admin: 01/30/19 08:40 Dose: 150 mg Ascorbic Acid (Vitamin C) 500 mg PO DAILY [facility] Last Admin: 01/30/19 08:39 Dose: 500 mg Aspirin (Ecotrin) 81 mg PO BID [facility] Last Admin: 01/30/19 08:40 Dose: 81 mg Bupropion HCl (Wellbutrin) 75 mg PO TID [facility] Last Admin: 01/30/19 08:40 Dose: 75 mg Cholecalciferol (Vitamin D3) 5,000 units PO DAILY [facility] Last Admin: 01/30/19 08:38 Dose: 5,000 units Cyanocobalamin (Vitamin B-12) 5,000 mcg PO Q2DAYS@0900 [facility] Last Admin: 01/30/19 08:39 Dose: 5,000 mcg Diphenhydramine HCl (Benadryl) 25 mg PO Q6H PRN PRN Reason: Itching Last Admin: 01/28/19 18:28 Dose: 25 mg Escitalopram Oxalate (Lexapro) 20 mg PO DAILY [facility] Last Admin: 01/30/19 08:40 Dose: 20 mg Estrogens Conjugated (Premarin Cream) 1 gm VAG MoWeFr [facility] Last Admin: 01/29/19 21:07 Dose: 1 gm Fentanyl (Sublimaze) 50 mcg SLOW IVP Q1H PRN PRN Reason: breakthrough pain Fentanyl (Duragesic) 50 mcg TD Q2D [facility] Last Admin: 01/28/19 18:28 Dose: 50 mcg Ferrous Gluconate (Fergon) 324 mg PO BID-WM [facility] Last Admin: 01/30/19 08:39 Dose: 324 mg Folic Acid (Folvite) 1 mg PO DAILY [facility] Last Admin: 01/30/19 08:40 Dose: 1 mg Gabapentin (Neurontin) 300 mg PO QAM [facility] Last Admin: 01/30/19 08:40 Dose: 300 mg Gabapentin (Neurontin) 600 mg PO HS [facility] Last Admin: 01/29/19 21:06 Dose: 600 mg Hyoscyamine Sulfate (Levsin Sl) 0.125 mg SL Q4H PRN PRN Reason: GI Upset Ropivacaine 250 ml/ Device 250 mls @ 10 mls/hr NERVE BLCK INF [facility] Last Admin: 01/29/19 14:07 Dose: 250 mls Sodium Chloride (Normal Saline 0.9%) 1,000 mls @ 100 mls/hr IV .Q10H [facility] Last Admin: 01/30/19 04:29 Dose: Not Given Iron/Minerals/Multivitamins (Theragran M) 1 tab PO DAILY [facility] Last Admin: 01/30/19 08:40 Dose: 1 tab Ketorolac Tromethamine (Toradol) 15 mg IVP Q8H PRN PRN Reason: Pain Stop: 02/02/19 13:06 Last Admin: 01/30/19 00:10 Dose: 15 mg Levothyroxine Sodium (Synthroid) 75 mcg PO 0600 [facility] Last Admin: 01/30/19 05:52 Dose: 75 mcg Loratadine (Claritin) 10 mg PO DAILY [facility] Last Admin: 01/30/19 08:40 Dose: 10 mg Losartan Potassium (Cozaar) 50 mg PO DAILY [facility] Last Admin: 01/30/19 08:39 Dose: 50 mg Magnesium Oxide (Magnesium Oxide) 400 mg PO HS [facility] Last Admin: 01/29/19 21:05 Dose: 400 mg Mirabegron (Myrbetriq Er) 25 mg PO DAILY [facility] Last Admin: 01/30/19 08:38 Dose: 25 mg Mometasone Furoate/Formoterol Fumar (Dulera 200 Mcg/5 Mcg Inhaler) 2 puff INH BID-RT [facility] Last Admin: 01/30/19 07:03 Dose: 2 puff Ondansetron HCl (Zofran) 4 mg IVP Q6H PRN PRN Reason: Nausea/Vomiting Pantoprazole Sodium (Protonix) 40 mg PO DAILY [facility] Last Admin: 01/30/19 08:40 Dose: 40 mg Pramipexole Dihydrochloride (Mirapex) 1 mg PO BID [facility] Last Admin: 01/30/19 08:39 Dose: 1 mg Promethazine HCl (Phenergan) 12.5 mg IM Q4H PRN PRN Reason: Nausea Propranolol HCl (Inderal La) 160 mg PO DAILY [facility] Last Admin: 01/30/19 08:36 Dose: 160 mg Ropinirole HCl (Requip) 0.5 mg PO BID [facility] Last Admin: 01/30/19 08:36 Dose: 0.5 mg Senna/Docusate Sodium (Senokot S) 2 tab PO BID [facility] Last Admin: 01/30/19 08:39 Dose: 2 tab Sodium Chloride (Flush - Normal Saline) 10 ml IVF PRN PRN PRN Reason: Saline Flush Thyroid ([place] Thyroid) 30 mg PO QAM [facility] Last Admin: 01/30/19 08:38 Dose: 30 mg Tizanidine HCl (Zanaflex) 4 mg PO HS PRN PRN Reason: Muscle Spasm Last Admin: 01/30/19 00:10 Dose: 4 mg Topiramate (Topamax) 150 mg PO HS [facility] Last Admin: 01/29/19 21:06 Dose: 150 mg Zinc Sulfate (Zinc Sulfate) 50 mg PO DAILY [facility] Last Admin: 01/30/19 08:38 Dose: 50 mg Zolpidem Tartrate (Ambien) 5 mg PO HSPRN PRN PRN Reason: Insomnia
[2019-01-30] MEDS ORDERED: Dextrose 50% Abboject 50 ML SYRINGE SLOW IVP PRN (13:46)
[2019-01-30] MEDS ORDERED: HumaLOG 300 UNITS/3 ML VIAL SC PRN ×2 (13:46)
[2019-01-30] MEDS ORDERED: Dextrose 5% in Water 1,000 ML IV PRN (13:46)
--- NOTE | 2019-01-30 14:18 | DIS ---
DATE OF ADMISSION: 01/28/2019 DATE OF DISCHARGE: 01/30/2019 DISCHARGE DISPOSITION: Rehab. PRIMARY DISCHARGE DIAGNOSIS: Status post left total knee replacement. SECONDARY DISCHARGE DIAGNOSES: Restless legs syndrome; osteoarthritis; obstructive sleep apnea, on CPAP; macrocytic anemia; hypertension; chronic kidney disease, stage 3; dyslipidemia; B12 deficiency; asthma; anxiety; and depression. PRIMARY PROCEDURE/OPERATION: Left total knee replacement. RADIOLOGICAL INVESTIGATION: Knee x-ray. SIGNIFICANT LABORATORY DATA: Hemoglobin 7.9, MCV 105. Creatinine 1.44. DISCHARGE MEDICATIONS: 1. Hyoscyamine 0.125 mg sublingual q.4 hourly p.r.n. 2. Fioricet one or two tablets q.6 hourly p.r.n. 3. Vitamin C 500 mg p.o. daily. 4. Azelastine nasal spray daily. 5. Wellbutrin 75 mg p.o. t.i.d. 6. Vitamin D3 5000 units p.o. daily. 7. Colace four tablets p.o. at bedtime p.r.n. 8. Conjugated estrogen topical application as directed. 9. Duragesic patch 50 mcg transdermal every two days. 10. Ferrous gluconate one tablet twice daily. 11. [place] 180 mg daily p.r.n. 12. Advair two inhalations b.i.d. 13. Neurontin 600 mg at bedtime and 300 mg in the morning. 14. Losartan 50 mg daily. 15. Magnesium oxide 400 mg at bedtime. 16. Fiber four tablets daily. 17. Mirabegron 25 mg p.o. daily. 18. Multivitamin one tablet p.o. daily. 19. Omeprazole 40 mg p.o. at bedtime. 20. Mirapex 1 mg p.o. b.i.d. 21. Inderal LA 160 mg p.o. daily. 22. [place] Thyroid 30 mg daily. 23. Zanaflex 4 mg p.o. at bedtime. 24. Zinc sulfate one tablet p.o. at bedtime. 25. Allopurinol 150 mg p.o. at bedtime. 26. Aspirin 81 mg p.o. b.i.d. 27. Vitamin B12 5000 mcg p.o. daily. 28. Lexapro 20 mg p.o. daily. 29. Humalog insulin as per sliding scale. 30. Topamax 150 mg p.o. at bedtime. CONTRAINDICATION: None. CODE STATUS: Full code. INPATIENT SEAPORT PLANNING MANAGER: Dr. Titus was primary. Sound Team was consulted for medical management. TEST RESULT PENDING ON DISCHARGE: None. ALLERGIES: AMLODIPINE, CELECOXIB. DISCHARGE PLAN: Posthospital, the patient will follow up with primary care physician. HOSPITAL COURSE: A 73-year-old female, who was admitted by Dr. Titus. Please see his H and P for further details. The patient was admitted for left total knee replacement, which was done on January 28, 2019. After surgery, [facility] Team was consulted for medical comanagement. The patient's medical problems remained stable. We resumed all her home medication while in hospital as well as on discharge. We noted that her blood sugar was slightly high while in hospital, but her hemoglobin A1c was normal and that is why we prescribed Humalog insulin as per sliding scale at rehab. The patient is advised about diabetic diet and follow up with primary care physician for further evaluation of diabetes if needed as an outpatient basis. The patient is medically stable for discharge and we will sign off. Job ID: [id number]
[2019-01-30] MEDS: fentaNYL 50 mcg/hour Patch TD SCH (15:32)
[2019-01-30 16:21] VITALS: BP 130/67
== END 2019-01-30 17:04 | DRG 470 ==
LOC: SDC 06:50 → SURG A 13:20
PROVIDERS: ADMIT Orthopaedic Surgery; ATTEND Orthopaedic Surgery
PROC: 0SRD0J9 Replacement of Left Knee Joint with Synthetic Substitute, Cemented, Open Approach (ICD-10-PCS; principal; 2019-01-28)
DX: M17.12 Unilateral primary osteoarthritis, left knee (principal); J45.909 Unspecified asthma, uncomplicated; G47.33 Obstructive sleep apnea (adult) (pediatric); E03.9 Hypothyroidism, unspecified; K21.9 Gastro-esophageal reflux disease without esophagitis; G62.9 Polyneuropathy, unspecified; G89.29 Other chronic pain; G25.81 Restless legs syndrome; I25.10 Atherosclerotic heart disease of native coronary artery without angina pectoris; I12.9 Hypertensive chronic kidney disease with stage 1 through stage 4 chronic kidney disease, or unspecified chronic kidney disease; D64.9 Anemia, unspecified; F41.9 Anxiety disorder, unspecified; F32.9 Major depressive disorder, single episode, unspecified; E53.8 Deficiency of other specified B group vitamins; N18.3 Chronic kidney disease, stage 3 (moderate); E78.5 Hyperlipidemia, unspecified; M10.9 Gout, unspecified; Z96.611 Presence of right artificial shoulder joint; Z96.642 Presence of left artificial hip joint; Z88.2 Allergy status to sulfonamides; Z88.6 Allergy status to analgesic agent; Z88.1 Allergy status to other antibiotic agents; Z88.8 Allergy status to other drugs, medicaments and biological substances; Z91.048 Other nonmedicinal substance allergy status; Z90.722 Acquired absence of ovaries, bilateral; Z90.89 Acquired absence of other organs; Z98.41 Cataract extraction status, right eye; Z98.42 Cataract extraction status, left eye; Z87.440 Personal history of urinary (tract) infections
CPT/HCPCS: 36415; 80048; 83036; 85027; C1713; C1776; J1100; J1200; J1580; J1885; J2001; J2250; J2405; J2704; J2795; J3010; J3370; J3490; Q0163

== ENCOUNTER 2019-04-03 08:24 | Outpatient (CLI) | payer MEDICARE ==
[2019-04-03] MEDS ORDERED: Gadobenate Dimeglumine 529 MG/1 ML (20ML VIAL) ONE (09:00)
--- NOTE | 2019-04-03 14:55 | MRI ---
MRI PELVIS WITHOUT CONTRAST: INDICATIONS: History of irregular bowel habits. COMPARISON: None available. TECHNIQUE: Multiplanar, multisequence MR images were obtained of the abdomen with and without IV contrast. The patient received 7 mL of MultiHance for the examination. FINDINGS: Motion artifact from respiration heavily limits image detail of the examination. Comparisons are mad e with a CT of the abdomen and pelvis done on 12/22/2014. There is susceptibility artifact from a left total hip replacement that slightly limits image detail of the lower pelvis. The visualized aspects of the bladder, rectum, and perirectal soft tissues are unremarkable appearing. There is extensive colonic diverticulosis. No definite free fluid is grossl y evident. No definite marrow signal abnormality is grossly evident. Incidental note is made of a 2 cm cyst involving the inferior pole of the right kidney. IMPRESSION: 1. Heavily limited examination due to respiratory motion artifact. The patient could not maintain a breath hold during the examination, heavily limiting image quality. If symptoms continue, further e valuation with CT of the abdomen and pelvis with intravenous contrast is recommended. 2. Colonic diverticulosis. 3. Small, 2 cm right renal cyst. POS: CET
--- NOTE | 2019-04-03 15:15 | MRI ---
MRI OF THE ABDOMEN WITH AND WITHOUT IV CONTRAST: INDICATION: A 73-year-old female with a history of abnormality seen within the jesusita hepatis near the pancreatic region on a comparison CTP examination of 11/04/2018. The patient has been having diarrhea and stomac h pain. NOTE: The patient had difficulty with breath holds during the examination and abdominal cramps. Respirator y motion artifact limits image detail. 7 cc of Multihance administered. FINDINGS: Since the comparison CT of the abdomen and pelvis dated 12/22/2014, abdominal ultrasound dated 11/06/19 19 there has been development of prominent dilatation of the intrahepatic and extrahepatic biliary du ct. The common bile duct is dilated up to 1.8 cm. There is a hydropic appearance of the gallbladder . There is dilatation of the main pancreatic duct at the level of the body measuring 6.8 cm. No def inite ampullary mass or pancreatic head mass is grossly evident. The common bile duct is dilated to the level of the ampulla and is redundant upon itself. No intraluminal stones are present. No definite focal hepatic lesion is noted. The adrenal glands and spleen appear within normal limits . There are bilateral renal cysts. No free fluid or definite pathologically enlarged lymph nodes ar e seen within the upper abdomen. No definite bone marrow signal abnormality is evident. There are mild splenic varicosities seen adjacent to the spleen. There is scattered colonic divertic santana. IMPRESSION: 1. Interval development of prominent intrahepatic and extrahepatic biliary ductal dilatation extends to the level of the ampulla with dilatation of the main pancreatic duct. Stenotic or obstructing pr ocess at the ampulla is suspected. No definite mass lesion is evident on the provided MR images with in this region; however, the respiratory motion artifact on the examination does limit the image deta il. Would recommend an ERCP for further characterization. 2. Bilateral renal cysts. 3. Colonic diverticulosis. 4. Mild splenic varicosities. POS: CET
== END 2019-04-03 08:25 | disposition home or self-care (01) ==
LOC: SCSMRI 08:24
PROVIDERS: ATTEND Internal Medicine
DX: R93.3 Abnormal findings on diagnostic imaging of other parts of digestive tract (principal); R19.4 Change in bowel habit; N28.1 Cyst of kidney, acquired; I86.8 Varicose veins of other specified sites; K57.30 Diverticulosis of large intestine without perforation or abscess without bleeding; K86.89 Other specified diseases of pancreas; K83.8 Other specified diseases of biliary tract
CPT/HCPCS: 72197; 74183; A9577